=== PATIENT | male | born 1990 | race Caucasian/White ===

== ENCOUNTER 2022-01-14 22:42 | Emergency (ER) | payer OTHER ==
[~2022-01-14] VITALS: Ht 180.3 cm; Wt 83.2 kg
[2022-01-14 23:25] VITALS: BP 142/92
[2022-01-14] MEDS ORDERED: EMTR1TAB11 MT (23:44)
[2022-01-14] MEDS ORDERED: RALT400T MT (23:44)
[2022-01-14] MEDS ORDERED: DOXYCYCLINE HYCLATE 100MG CAPSULE PO ONE (23:45)
[2022-01-14] MEDS ORDERED: CEFTRIAXONE SODIUM 500 MG/VIAL IM ONE (23:45)
[2022-01-15] MEDS ORDERED: RALT400T MT (08:54)
[2022-01-15] MEDS ORDERED: EMTR1TAB11 MT (08:54)
== END 2022-01-15 00:26 | disposition home or self-care (01) ==
LOC: ER 22:42
DX: A64 Unspecified sexually transmitted disease (principal)
CPT/HCPCS: 96372; 99283; J0696

== ENCOUNTER 2022-01-15 08:03 | Emergency (ER) | payer OTHER ==
[~2022-01-15] VITALS: Ht 180.3 cm; Wt 86.0 kg
[2022-01-15 08:15] VITALS: BP 133/68
[2022-01-15] MEDS ORDERED: EMTR1TAB11 MT (08:54)
[2022-01-15] MEDS ORDERED: RALT400T MT (08:54)
[2022-01-15 09:24] LABS: BASOPHILS % 0.4 % (0.0-2.0); EOSINOPHILS % 0.3 % (0.0-5.0); HEMATOCRIT. 40.3 % (42.0-52.0); LYMPHOCYTES % 18.8 % (20.0-50.0); MEAN CORPUSCULAR HEMOGLOBIN 29.4 pg (28.0-32.0); MEAN CORPUSCULAR VOLUME 84.7 fL (80.0-94.0); MEAN PLATELET VOLUME 8.5 fl (7.4-10.4); MONOCYTES % 4.4 % (2.0-8.0); NEUTROPHILS % 76.1 % (40.0-76.0); PLATELET 212 x1000/uL (130-400); RED BLOOD CELL COUNT 4.75 mill/uL (4.7-6.1); RED CELL DISTRIBUTION WIDTH 14.2 % (11.6-14.6)
[2022-01-15 09:25] LABS: CHLORIDE 108 mEq/L (98-107)
[2022-01-16 06:10] LABS: HIV SCREEN 4G Non Reactive (Non Reactive)
== END 2022-01-15 12:24 | disposition home or self-care (01) ==
LOC: ER 08:03 → CANBEDREQ 09:21 → ER 12:24
DX: T76.21XA Adult sexual abuse, suspected, initial encounter (principal)
CPT/HCPCS: 36415; 80053; 85025; 87389; 99283